=== PATIENT | male | born 1990 | race Two or more races ===

== ENCOUNTER 2022-03-29 08:17 | Emergency (ER) | payer SELFPAY ==
[2022-03-29 08:34] VITALS: BP 104/86; BMI 52.6
[2022-03-29] MEDS ORDERED: SODIUM CHLORIDE 0.9% 500 ML INFUS.BAG IV ONE (09:22)
[2022-03-29] MEDS ORDERED: ACETAMINOPHEN 500 MG TABLET (FP) PO ONE (09:22)
[2022-03-29] MEDS ORDERED: ACETAMINOPHEN 325 MG TABLET (FP) ONE (10:11)
[2022-03-29 11:22] LABS: BASO % 0.4 % (0-2.0); HEMATOCRIT 41.3 % (35.4-49); HEMOGLOBIN 13.4 GM/dL (11.7-16.9); LYMPH % 7.8 % (8-40); MCHC 32.5 g/dl (32.0-35.9); MEAN CELL VOLUME 80.1 fl (80-96); MEAN PLT VOLUME 9.8 fl (7.5-11.1); MONO % 7.3 % (3.8-10.2); NEUT % 81.5 % (42.8-82.8); PLATELET COUNT 225 10^3/uL (134-434); RBC 5.15 M/mm3 (4.00-5.60); RDW 15.1 % (11.9-15.9); WHITE BLOOD COUNT 9.8 K/mm3 (4.0-10.0)
[2022-03-29 11:51] LABS: CALCIUM 8.7 mg/dL (8.5-10.1)
[2022-03-29 11:52] LABS: ALBUMIN 3.4 g/dl (3.4-5.0)
[2022-03-29 11:53] LABS: MAGNESIUM 2.4 mg/dL (1.8-2.4)
[2022-03-29 11:55] LABS: CREATININE 0.8 mg/dL (0.55-1.3)
[2022-03-29 11:56] LABS: BILIRUBIN,TOTAL 0.5 mg/dL (0.2-1)
[2022-03-29 11:57] LABS: TOT PROT 7.8 g/dl (6.4-8.2)
[2022-03-29 13:28] VITALS: TEMP 98
[2022-03-29 14:59] VITALS: PULSE 99
== END 2022-03-29 15:00 | disposition home or self-care (01) ==
LOC: JER 08:17
DX: G47.30 Sleep apnea, unspecified (principal); J09.X2 Influenza due to identified novel influenza A virus with other respiratory manifestations
CPT/HCPCS: 0241U-QW; 36415; 71045-TC-FY; 80053; 83735; 84484; 85025; 93005; 93010; 99285-25

== ENCOUNTER 2023-06-27 03:37 | Emergency (ER) | payer SELFPAY ==
[2023-06-27 03:45] VITALS: BMI 54.9
[2023-06-27] MEDS ORDERED: ONDANSETRON 4 MG/2 ML VIAL IVPUSH ONE (04:12)
[2023-06-27] MEDS ORDERED: ACETAMINOPHEN 1000 MG/100 ML BAG IVPB ONE (04:12)
[2023-06-27] MEDS ORDERED: FAMOTIDINE 20 MG/50 ML IVPB 20 MG/50 ML MG IVPB ONE (04:13)
[2023-06-27] MEDS ORDERED: ACETAMINOPHEN INJECTION 100 ML IVPB ONE (04:23)
[2023-06-27] MEDS ORDERED: FAMOTIDINE 10 MG/ML VIAL IVPB ONE (04:24)
[2023-06-27] MEDS ORDERED: ONDANSETRON 4 MG/2 ML VIAL ONE (04:24)
[2023-06-27 05:01] LABS: BASO % 0.3 % (0-2.0); EOS % 1.3 % (0-4.5); HEMATOCRIT 41.2 % (35.4-49); HEMOGLOBIN 13.3 GM/dL (11.7-16.9); LYMPH % 18.9 % (8-40); MCH 25.9 pg (25.7-33.7); MCHC 32.3 g/dl (32.0-35.9); MEAN CELL VOLUME 80.3 fl (80-96); MEAN PLT VOLUME 9.6 fl (7.5-11.1); MONO % 4.2 % (3.8-10.2); NEUT % 75.3 % (42.8-82.8); PLATELET COUNT 224 10^3/uL (134-434); RBC 5.14 M/mm3 (4.00-5.60); RDW 14.7 % (11.9-15.9); WHITE BLOOD COUNT 11.7 K/mm3 (4.0-10.0)
[2023-06-27 05:03] LABS: INR 0.95 (0.83-1.09)
[2023-06-27 05:05] LABS: POTASSIUM 3.8 mmol/L (3.5-5.1)
[2023-06-27 05:06] LABS: ACTIVATED PTT 33.8 SECONDS (25.2-36.5)
[2023-06-27 05:07] LABS: CALCIUM 8.4 mg/dL (8.5-10.1)
[2023-06-27 05:08] LABS: ALBUMIN 3.6 g/dl (3.4-5.0); BLOOD UREA NITROGEN 16.7 mg/dL (7-18); MAGNESIUM 2.4 mg/dL (1.8-2.4)
[2023-06-27 05:11] LABS: CREATININE 0.9 mg/dL (0.55-1.3)
[2023-06-27 05:12] LABS: BILIRUBIN,TOTAL 0.2 mg/dL (0.2-1); TOT PROT 7.6 g/dl (6.4-8.2)
[2023-06-27 06:36] VITALS: TEMP 97.7
[2023-06-27 11:03] LABS: PH,URINE 6.5 (5.0-8.0); URINE APPEARANCE CLEAR; URINE BILIRUBIN NEGATIVE (NEGATIVE); URINE COLOR YELLOW; URINE GLUCOSE (UA) NEGATIVE (NEGATIVE); URINE KETONE NEGATIVE (NEGATIVE); URINE LEUK ESTERASE NEGATIVE (NEGATIVE); URINE NITRITE NEGATIVE (NEGATIVE); URINE PROTEIN NEGATIVE (NEGATIVE); URINE UROBILINOGEN 0.2 mg/dL (0.2-1.0)
[2023-06-27 11:37] VITALS: BP 125/80; PULSE 65; RESP 18
== END 2023-06-27 11:46 | disposition home or self-care (01) ==
LOC: JER 03:37
PROC: 3E033GC Introduction of Other Therapeutic Substance into Peripheral Vein, Percutaneous Approach (ICD-10-PCS; principal; 2023-06-27)
PROC: 3E033NZ Introduction of Analgesics, Hypnotics, Sedatives into Peripheral Vein, Percutaneous Approach (ICD-10-PCS; 2023-06-27)
PROC: 3E033GC Introduction of Other Therapeutic Substance into Peripheral Vein, Percutaneous Approach (ICD-10-PCS; 2023-06-27)
DX: R10.11 Right upper quadrant pain (principal); R10.13 Epigastric pain; R35.0 Frequency of micturition; R39.15 Urgency of urination; K80.51 Calculus of bile duct without cholangitis or cholecystitis with obstruction; R07.9 Chest pain, unspecified; R11.0 Nausea
CPT/HCPCS: 36415; 71045-TC-FY; 74177-TC; 76705-TC; 80053; 81003; 83690; 83735; 84484; 85025; 85610; 85730; 87086; 93005; 93010; 99285-25; Q9967

== ENCOUNTER 2024-01-30 09:24 | Inpatient (IN) | payer OTHER ==
[2024-01-30] MEDS ORDERED: ONDANSETRON 4 MG/2 ML VIAL ONE (10:16)
[2024-01-30] MEDS: SODIUM CHLORIDE 0.9% 500 ML INFUS.BAG IV ONE (10:31)
[2024-01-30] MEDS: ONDANSETRON 4 MG/2 ML VIAL IVPUSH ONE (10:32)
[2024-01-30 10:47] LABS: HEMATOCRIT 44.2 % (35.4-49); MCH 26.3 pg (25.7-33.7); MCHC 31.7 g/dl (32.0-35.9); MEAN PLT VOLUME 9.9 fl (7.5-11.1); PLATELET COUNT 241 10^3/uL (134-434); RBC 5.33 M/mm3 (4.00-5.60); RDW 15.3 % (11.9-15.9); WHITE BLOOD COUNT 22.6 K/mm3 (4.0-10.0)
[2024-01-30 11:00] LABS: VENOUS O2 SATURATION 22.4 % (70-80); VENOUS PCO2 61.4 mmHg (38-52); VENOUS PH 7.225 (7.310-7.410)
[2024-01-30 11:12] LABS: POTASSIUM 5.1 mmol/L (3.5-5.1)
[2024-01-30 11:13] LABS: CALCIUM 8.3 mg/dL (8.5-10.1)
[2024-01-30 11:14] LABS: BLOOD UREA NITROGEN 44.2 mg/dL (7-18); MAGNESIUM 2.7 mg/dL (1.8-2.4)
[2024-01-30 11:17] LABS: CREATININE 3.7 mg/dL (0.55-1.3)
[2024-01-30 11:19] LABS: BILIRUBIN,TOTAL 0.5 mg/dL (0.2-1); TOT PROT 8.6 g/dl (6.4-8.2)
[2024-01-30] MEDS: ASPIRIN 81 MG CHEWABLE TABLETS PO ONE (11:20)
[2024-01-30] MEDS: ENOXAPARIN NA (PORCINE) 120 MG/0.8 ML DISP.SYRIN SQ SCH (11:28)
[2024-01-30] MEDS: NITROGLYCERIN SUBLINGUAL 1/150 0.4 MG TAB SL ONE (11:29)
[2024-01-30] MEDS ORDERED: HEPARIN NA (PORCINE) 5,000 UNITS/ML 1ML VIAL IVPUSH PRN (11:31)
[2024-01-30] MEDS ORDERED: PIPERACILLIN/TAZOB 4.5 GM 4.5 GM/100 ML BAG IVPB ONE (11:32)
[2024-01-30] MEDS: PIPERACILLIN/TAZOB 4.5 GM 4.5 GM in DEXTROSE 5%-WATER 100 ML IVPB ONE (11:33)
[2024-01-30 12:03] LABS: ANISOCYTOSIS 1+; MACROCYTOSIS 0
[2024-01-30 13:12] LABS: INR 1.19 (0.83-1.09); PROTHROMBIN TIME (PATIENT) 13.8 SEC (9.7-13.0)
[2024-01-30 13:33] LABS: ALBUMIN 3.6 g/dl (3.4-5.0)
[2024-01-30] MEDS: SODIUM CHLORIDE 1,000 ML IV STA ×3 (13:35→22:11)
[2024-01-30 13:37] LABS: BILIRUBIN,DIRECT 0.2 mg/dL (0.0-0.2); BILIRUBIN,TOTAL 0.5 mg/dL (0.2-1); TOT PROT 7.6 g/dl (6.4-8.2)
[2024-01-30] MEDS: INSULIN ASPART SLIDING SCALE (NOVOLOG) 1 VIAL SQ SCH (13:51)
[2024-01-30] MEDS: HEPARIN SOD,PORK IN 0.45% NACL 25,000 UNITS/500 ML INFUS.BAG IVPB SCH (14:02)
[2024-01-30] MEDS: ASPIRIN SUPPOSITORY 600 MG SUPP.RECT RC ONE (14:02)
[2024-01-30] MEDS: HEPARIN - 25,000 UNIT in SODIUM CHLORIDE 495 ML IV SCH (14:04)
[2024-01-30] MEDS: SODIUM CHLORIDE 1,000 ML IV SCH (14:51)
[2024-01-30 15:08] LABS: EPI CELLS 20 /uL (0-25.1); HYALINE CASTS 6 /uL (0-3.1); URINE APPEARANCE CLOUDY; URINE BACTERIA 3 /uL (0-1359); URINE BILIRUBIN NEGATIVE (NEGATIVE); URINE COLOR YELLOW; URINE GLUCOSE (UA) NEGATIVE (NEGATIVE); URINE KETONE NEGATIVE (NEGATIVE); URINE LEUK ESTERASE NEGATIVE (NEGATIVE); URINE NITRITE NEGATIVE (NEGATIVE); URINE PROTEIN 2+ (NEGATIVE); URINE RBC 9 /uL (0-23.9); URINE UROBILINOGEN 0.2 mg/dL (0.2-1.0); URINE WBC 23 /uL (0-25.8)
[2024-01-30] MEDS: ASPIRIN 300 MG SUPP.RECT RC ONE (15:09)
[2024-01-30 15:14] LABS: METHADONE, UR NEGATIVE (NEGATIVE); PHENCYCLIDINE,URINE NEGATIVE (NEGATIVE); URINE BARBITURATES NEGATIVE (NEGATIVE); URINE BENZODIAZEPINES NEGATIVE (NEGATIVE)
[2024-01-30 15:15] LABS: OPIATES, URI NEGATIVE (NEGATIVE)
[2024-01-30 15:17] LABS: COCAINE, UR POSITIVE (NEGATIVE); URINE AMPHETAMINES NEGATIVE (NEGATIVE)
[2024-01-30 15:38] LABS: URINE CRYSTALS NONE SEEN /hpf
[2024-01-30 16:14] LABS: LACTIC ACID 2.8 mmol/L (0.4-2.0)
[2024-01-30] MEDS ORDERED: DEXTROSE 5% IVPB ONE ×2 (16:51→20:51)
[2024-01-30] MEDS ORDERED: WATER IVPB ONE ×2 (16:51→20:51)
[2024-01-30] MEDS ORDERED: ACETYLCYSTEINE IVPB ONE ×2 (16:51→20:51)
[2024-01-30] MEDS: ACETYLCYSTEINE IVPB ONE ×3 (17:26→18:53)
[2024-01-30] MEDS: DEXTROSE 5% IVPB ONE ×3 (17:26→18:53)
[2024-01-30] MEDS: WATER IVPB ONE ×3 (17:26→18:53)
[2024-01-30] MEDS: ACETYLCYSTEINE INJECTION 20% 5,000 MG in DEXTROSE 5%-WATER - 500 ML IVPB ONE (18:52)
[2024-01-30 20:15] LABS: ALBUMIN 2.9 g/dl (3.4-5.0)
[2024-01-30 20:18] LABS: BILIRUBIN,DIRECT 0.2 mg/dL (0.0-0.2)
[2024-01-30 20:20] LABS: BILIRUBIN,TOTAL 0.5 mg/dL (0.2-1); TOT PROT 6.8 g/dl (6.4-8.2)
[2024-01-30] MEDS ORDERED: SODIUM CHLORIDE 1,000 ML IV STA (20:51)
[2024-01-30] MEDS: MUPIROCIN 2% TOPICAL OINTMENT FOR DECOLONIZATION NS SCH (21:18)
[2024-01-30] MEDS: CHLORHEXIDINE GLUCONATE 4% CLEANSER FOR DECOLONIZATION TP SCH (21:18)
[2024-01-30] MEDS: HEPARIN NA (PORCINE) 5,000 UNITS/ML 1ML VIAL IVPUSH PRN (22:55)
[2024-01-30] MEDS: ACETYLCYSTEINE INJECTION 20% 10,000 MG in DEXTROSE 5%-WATER - 1,000 ML IVPB ONE (23:52)
[2024-01-31 06:43] LABS: HEMATOCRIT 37.4 % (35.4-49); HEMOGLOBIN 11.9 GM/dL (11.7-16.9); MCH 26.1 pg (25.7-33.7); MCHC 31.8 g/dl (32.0-35.9); MEAN CELL VOLUME 82.1 fl (80-96); MEAN PLT VOLUME 9.8 fl (7.5-11.1); PLATELET COUNT 181 10^3/uL (134-434); RBC 4.55 M/mm3 (4.00-5.60); RDW 15.1 % (11.9-15.9)
[2024-01-31 06:50] LABS: INR 1.27 (0.83-1.09); PROTHROMBIN TIME (PATIENT) 14.7 SEC (9.7-13.0)
[2024-01-31 07:10] LABS: POTASSIUM 3.4 mmol/L (3.5-5.1)
[2024-01-31 07:12] LABS: CALCIUM 8.3 mg/dL (8.5-10.1)
[2024-01-31 07:15] LABS: MAGNESIUM 2.5 mg/dL (1.8-2.4)
[2024-01-31 07:16] LABS: CREATININE 1.2 mg/dL (0.55-1.3)
[2024-01-31 07:18] LABS: ALBUMIN 2.8 g/dl (3.4-5.0); PHOSPHOROUS 2.2 mg/dL (2.5-4.9)
[2024-01-31 07:21] LABS: BILIRUBIN,DIRECT 0.2 mg/dL (0.0-0.2)
[2024-01-31 07:22] LABS: TOT PROT 6.5 g/dl (6.4-8.2)
[2024-01-31 07:23] LABS: BILIRUBIN,TOTAL 0.5 mg/dL (0.2-1)
[2024-01-31] MEDS: SODIUM CHLORIDE 1,000 ML IV SCH ×2 (07:54→08:17)
[2024-01-31] MEDS: PANTOPRAZOLE SODIUM 40 MG VIAL IVPUSH SCH (09:09)
[2024-01-31] MEDS: ASPIRIN 81 MG CHEWABLE TABLETS PO SCH (09:09)
[2024-01-31] MEDS: POTASSIUM PHOSPHATE 30 MM in SODIUM CHLORIDE 250 ML IVPB ONE (09:19)
[2024-01-31] MEDS ORDERED: ASPIRIN 300 MG SUPP.RECT RC SCH (10:00)
[2024-01-31] MEDS ORDERED: LACTATED RINGERS SOLUTION 1,000 ML/1,000 ML INFUS.BAG IV SCH (10:00)
[2024-01-31] MEDS: LISINOPRIL 10 MG TABLET PO SCH (11:37)
[2024-01-31 13:32] VITALS: BMI 55.3
[2024-01-31 13:47] LABS: ALBUMIN 2.9 g/dl (3.4-5.0)
[2024-01-31 13:50] LABS: BILIRUBIN,DIRECT 0.2 mg/dL (0.0-0.2); SGOT/AST 415 U/L (15-37); SGPT/ALT 578 U/L (13-61)
[2024-01-31 13:52] LABS: BILIRUBIN,TOTAL 0.6 mg/dL (0.2-1); TOT PROT 6.5 g/dl (6.4-8.2)
[2024-01-31 13:53] LABS: ALK PHOS 107 U/L (45-117)
[2024-01-31] MEDS: LACTATED RINGERS SOLUTION 1,000 ML/1,000 ML INFUS.BAG IV SCH (16:58)
[2024-01-31] MEDS: INSULIN ASPART SLIDING SCALE (NOVOLOG) 1 VIAL SQ SCH (16:59)
[2024-01-31 19:46] LABS: POTASSIUM 3.7 mmol/L (3.5-5.1)
[2024-01-31 19:49] LABS: BLOOD UREA NITROGEN 12.8 mg/dL (7-18); CALCIUM 8.8 mg/dL (8.5-10.1)
[2024-01-31 19:52] LABS: CREATININE 0.7 mg/dL (0.55-1.3)
[2024-01-31 19:54] LABS: BILIRUBIN,TOTAL 0.5 mg/dL (0.2-1); TOT PROT 6.6 g/dl (6.4-8.2)
[2024-01-31] MEDS ORDERED: INSULIN (NOVOLOG) ASPART 100 UNITS/ML 10ML VIAL ONE (21:11)
[2024-01-31] MEDS: HEPARIN NA (PORCINE) 5,000 UNITS/ML 1ML VIAL SQ SCH (21:45)
[2024-02-01 06:23] LABS: HEMATOCRIT 35.3 % (35.4-49); HEMOGLOBIN 11.3 GM/dL (11.7-16.9); MCH 26.4 pg (25.7-33.7); MCHC 32.1 g/dl (32.0-35.9); MEAN CELL VOLUME 82.2 fl (80-96); MEAN PLT VOLUME 9.7 fl (7.5-11.1); PLATELET COUNT 196 10^3/uL (134-434); RDW 14.7 % (11.9-15.9); WHITE BLOOD COUNT 11.2 K/mm3 (4.0-10.0)
[2024-02-01 06:35] LABS: INR 1.22 (0.83-1.09); PROTHROMBIN TIME (PATIENT) 14.1 SEC (9.7-13.0)
[2024-02-01 06:48] LABS: POTASSIUM 3.9 mmol/L (3.5-5.1)
[2024-02-01 06:50] LABS: CALCIUM 8.9 mg/dL (8.5-10.1)
[2024-02-01 06:51] LABS: MAGNESIUM 1.8 mg/dL (1.8-2.4)
[2024-02-01 06:53] LABS: ALBUMIN 2.7 g/dl (3.4-5.0); BLOOD UREA NITROGEN 10.9 mg/dL (7-18)
[2024-02-01 06:54] LABS: CREATININE 0.6 mg/dL (0.55-1.3); PHOSPHOROUS 2.1 mg/dL (2.5-4.9)
[2024-02-01 06:55] LABS: TOT PROT 6.2 g/dl (6.4-8.2)
[2024-02-01 06:56] LABS: BILIRUBIN,TOTAL 0.6 mg/dL (0.2-1)
[2024-02-01] MEDS: CLOPIDOGREL BISULFATE 75 MG TABLET (FP) PO SCH (09:09)
[2024-02-02 06:33] LABS: BASO % 0.3 % (0-2.0); EOS % 0.8 % (0-4.5); HEMATOCRIT 36.4 % (35.4-49); HEMOGLOBIN 11.9 GM/dL (11.7-16.9); LYMPH % 21.7 % (8-40); MCH 26.9 pg (25.7-33.7); MCHC 32.8 g/dl (32.0-35.9); MEAN CELL VOLUME 82.1 fl (80-96); MEAN PLT VOLUME 9.5 fl (7.5-11.1); MONO % 6.5 % (3.8-10.2); NEUT % 70.7 % (42.8-82.8); PLATELET COUNT 215 10^3/uL (134-434); RBC 4.43 M/mm3 (4.00-5.60); RDW 14.8 % (11.9-15.9); WHITE BLOOD COUNT 13.4 K/mm3 (4.0-10.0)
[2024-02-02 06:38] LABS: INR 1.22 (0.83-1.09); PROTHROMBIN TIME (PATIENT) 14.1 SEC (9.7-13.0)
[2024-02-02 06:50] LABS: POTASSIUM 3.7 mmol/L (3.5-5.1)
[2024-02-02 06:53] LABS: CALCIUM 8.8 mg/dL (8.5-10.1)
[2024-02-02 06:54] LABS: ALBUMIN 2.8 g/dl (3.4-5.0); BLOOD UREA NITROGEN 11.1 mg/dL (7-18); MAGNESIUM 1.9 mg/dL (1.8-2.4)
[2024-02-02 06:57] LABS: CREATININE 0.7 mg/dL (0.55-1.3)
[2024-02-02 06:58] LABS: TOT PROT 6.4 g/dl (6.4-8.2)
[2024-02-02 06:59] LABS: BILIRUBIN,TOTAL 0.5 mg/dL (0.2-1)
[2024-02-02] MEDS: PANTOPRAZOLE 40 MG TABLET PO SCH (09:32)
[2024-02-02] MEDS: INSULIN ASPART SLIDING SCALE (NOVOLOG) 1 VIAL SQ SCH (16:51)
[2024-02-02 19:08] LABS: ANTIGLOMERULAR BASEMENT MEN.AB <0.2 units (0.0-0.9)
[2024-02-02] MEDS: HEPARIN NA (PORCINE) 5,000 UNITS/ML 1ML VIAL SQ SCH (22:06)
[2024-02-03 09:30] LABS: BASO % 0.2 % (0-2.0); EOS % 1.2 % (0-4.5); HEMATOCRIT 38.6 % (35.4-49); HEMOGLOBIN 12.4 GM/dL (11.7-16.9); LYMPH % 22.1 % (8-40); MCH 26.4 pg (25.7-33.7); MCHC 32.1 g/dl (32.0-35.9); MEAN PLT VOLUME 9.4 fl (7.5-11.1); NEUT % 70.5 % (42.8-82.8); PLATELET COUNT 243 10^3/uL (134-434); RBC 4.71 M/mm3 (4.00-5.60); RDW 14.7 % (11.9-15.9); WHITE BLOOD COUNT 12.5 K/mm3 (4.0-10.0)
[2024-02-03 09:42] LABS: INR 1.17 (0.83-1.09); PROTHROMBIN TIME (PATIENT) 13.5 SEC (9.7-13.0)
[2024-02-03 09:46] LABS: POTASSIUM 3.4 mmol/L (3.5-5.1)
[2024-02-03] MEDS: ASPIRIN 81 MG CHEWABLE TABLETS PO SCH (09:51)
[2024-02-03] MEDS: LISINOPRIL 10 MG TABLET PO SCH (09:51)
[2024-02-03] MEDS: PANTOPRAZOLE 40 MG TABLET PO SCH (09:51)
[2024-02-03] MEDS: CLOPIDOGREL BISULFATE 75 MG TABLET (FP) PO SCH (09:51)
[2024-02-03 10:05] LABS: BLOOD UREA NITROGEN 13.9 mg/dL (7-18); CALCIUM 8.8 mg/dL (8.5-10.1)
[2024-02-03 10:06] LABS: ALBUMIN 2.9 g/dl (3.4-5.0); MAGNESIUM 1.9 mg/dL (1.8-2.4)
[2024-02-03 10:09] LABS: CREATININE 0.7 mg/dL (0.55-1.3)
[2024-02-03 10:10] LABS: BILIRUBIN,TOTAL 0.6 mg/dL (0.2-1)
[2024-02-03 10:12] LABS: TOT PROT 6.6 g/dl (6.4-8.2)
[2024-02-03] MEDS: ALBUTEROL SO4 2.5/IPRATROPIUM 0.5 INH SOL 3 ML VIAL.NEB. NEB SCH (14:00)
[2024-02-04 06:39] VITALS: RESP 20
[2024-02-04 09:13] LABS: BASO % 0.2 % (0-2.0); HEMATOCRIT 40.3 % (35.4-49); HEMOGLOBIN 13.5 GM/dL (11.7-16.9); LYMPH % 24.8 % (8-40); MCHC 33.3 g/dl (32.0-35.9); MEAN PLT VOLUME 9.3 fl (7.5-11.1); MONO % 4.7 % (3.8-10.2); NEUT % 69.3 % (42.8-82.8); PLATELET COUNT 257 10^3/uL (134-434); RBC 4.98 M/mm3 (4.00-5.60); RDW 14.9 % (11.9-15.9); WHITE BLOOD COUNT 13.6 K/mm3 (4.0-10.0)
[2024-02-04 09:18] LABS: INR 1.18 (0.83-1.09); PROTHROMBIN TIME (PATIENT) 13.7 SEC (9.7-13.0)
[2024-02-04 09:30] LABS: POTASSIUM 3.4 mmol/L (3.5-5.1)
[2024-02-04 09:33] VITALS: BP 133/76; PULSE 78; TEMP 97.6
[2024-02-04 09:33] LABS: CALCIUM 8.9 mg/dL (8.5-10.1)
[2024-02-04 09:34] LABS: ALBUMIN 3.1 g/dl (3.4-5.0); BLOOD UREA NITROGEN 11.3 mg/dL (7-18); MAGNESIUM 1.9 mg/dL (1.8-2.4)
[2024-02-04 09:36] LABS: CREATININE 0.7 mg/dL (0.55-1.3)
[2024-02-04 09:38] LABS: BILIRUBIN,TOTAL 0.7 mg/dL (0.2-1); TOT PROT 7.1 g/dl (6.4-8.2)
[2024-02-05 16:08] LABS: ATYPICAL pANCA <1:20 titer (Neg:<1:20); C-ANCA <1:20 titer (Neg:<1:20)
== END 2024-02-04 11:29 | disposition home or self-care (01) | DRG 816 ==
LOC: JER 09:24 → JERBED 12:40 → JICU 14:19 → J5S 02-02 15:27
PROVIDERS: ADMIT Internal Medicine Pulmonary Disease; ATTEND Internal Medicine
DX: T40.5X1A Poisoning by cocaine, accidental (unintentional), initial encounter (principal); E11.9 Type 2 diabetes mellitus without complications; I21.4 Non-ST elevation (NSTEMI) myocardial infarction; J96.01 Acute respiratory failure with hypoxia; K72.00 Acute and subacute hepatic failure without coma; D72.829 Elevated white blood cell count, unspecified; K80.20 Calculus of gallbladder without cholecystitis without obstruction; I42.8 Other cardiomyopathies; M62.82 Rhabdomyolysis; N17.9 Acute kidney failure, unspecified; E66.01 Morbid (severe) obesity due to excess calories; Z68.43 Body mass index [BMI] 50.0-59.9, adult; K76.0 Fatty (change of) liver, not elsewhere classified; F19.20 Other psychoactive substance dependence, uncomplicated
CPT/HCPCS: 0241U-QW; 36415; 70450-TC; 71045-TC-FY; 71250-TC; 74176-TC; 76700-TC; 80048; 80053; 80076; 80307; 81003; 82010; 82140; 82550; 82553; 82803; 82962; 83036; 83516; 83520; 83605; 83735; 84100; 84439; 84443; 84484; 85025; 85027; 85610; 85730; 86256; 86704; 86803; 86850; 86900; 86901; 87040; 87340; 87517; 93005; 93010; 93306-TC; 94640; 94660; 94761; 97116-GP; 97162-GP; 99291; J1644

== ENCOUNTER 2024-03-03 18:43 | Emergency (ER) | payer OTHER ==
[2024-03-03 18:52] VITALS: BP 126/77; PULSE 83; RESP 18; TEMP 97.5; BMI 46.8
== END 2024-03-03 22:08 | disposition home or self-care (01) ==
LOC: JER 18:43
DX: R41.0 Disorientation, unspecified (principal); V47.5XXA Car driver injured in collision with fixed or stationary object in traffic accident, initial encounter; Z87.820 Personal history of traumatic brain injury
CPT/HCPCS: 70450-TC; 82962; 93005; 93010; 99285-25